=== PATIENT | male | born 1965 | race Caucasian/White ===

== ENCOUNTER 2018-07-27 06:05 | Day surgery (SDC) | payer OTHER ==
[~2018-07-27] VITALS: Ht 175.3 cm; Wt 86.2 kg
[~2018-07-27 06:05] MED LIST: HYDROCODONE-APA1 TAB PO; MORPHINE SULFAT30 M4 PO; NORVASC10 MG PO; PERCOCET 10/3251 TA1 PO; PRILOSEC20 MG PO; TORADOL10 MG PO
[2018-07-27 06:43] LABS: HEMATOCRIT 42.1 % (42.0-54.0); HEMOGLOBIN 14.2 g/dL (13.5-17.5); MCH 31.1 pg (26.0-34.0); MCHC 33.7 g/dL (31.0-37.0); MCV 92.1 fL (80.0-100.0); MEAN PLATELET VOLUME 9.6 fL (7.4-10.4); RBC 4.57 10x6/uL (4.20-6.10); RDW 13.4 % (11.5-14.5); WBC 8.9 10x3/uL (4.8-10.8)
[2018-07-27 07:58] VITALS: BP 126/89; Ht 175.3 cm; Wt 86.2 kg
[2018-07-27] MEDS ORDERED: OXYCODONE HCL5 M1 PO (11:01)
--- NOTE | 2018-07-27 13:25 | NUR ---
IV REMOVED PRESSURE HELD
--- NOTE | 2018-07-27 13:41 | OP ---
PATIENT NAME: CHRIS BRAND MEDICAL RECORD: [id number] :69 LOCATION:[facility] ADMISSION DATE: SURGEON: JOHN ACOSTA DO DATE OF OPERATION: 07/27/2018 PROCEDURE PERFORMED: Left knee arthroscopy with partial medial meniscectomy. PREOPERATIVE DIAGNOSIS: Left knee medial meniscal tear. POSTOPERATIVE DIAGNOSIS: Left knee medial meniscal tear. INDICATIONS: Mr. Brand is a 53-year-old male who presented to my office with an MRI, which showed a medial meniscal tear. He had popping, catching, and locking symptoms for quite some time. He was tired of dealing with it and wanted something done. He was informed of the risks including infection, bleeding, damage to nerves and vessels, need for further surgery, and he was okay with those risks and signed the consent. SURGEON: John Acosta DO DESCRIPTION OF PROCEDURE: The patient was taken to the operative suite, laid in supine position, given general anesthetic. LMA was placed. Given 2 grams Ancef preoperatively. The left lower extremity was prepped and draped in sterile fashion. A timeout was performed, everyone was in agreement with the correct side, site, patient and procedure. The procedure then began with injecting the medial and lateral anterior portal sites with 0.25% Marcaine, approximately 3 mL in each site. Then, the 11 blade scalpel was used to establish the lateral portal. Trocar was entered in the knee and the camera was then entered in the knee. The suprapatellar pouch was inspected and no loose body was seen, same as the lateral and medial gutters. Knee was then flexed down and the medial compartment was entered. The 18-gauge spinal needle was then used to establish a medial portal. This was then removed. An 11-blade scalpel was used to open it up. Trocar was then entered and then a probe. I probed the medial meniscus. It was quite a large tear from the middle to the posterior horn. This was then bit and trimmed out with a biter and shaver. Once we trimmed back to a stable position, it was checked with a probe and seen to be stable. The ACL was then checked and seen to be in good position. The probe was then parked in the posterior knee, lateral knee through the notch and then the leg was [id number]. The lateral meniscus was probed and it was seen to be in good position as well and no tear seen in it. A probe was then removed and cartilage was in good shape on the lateral femoral condyle. 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 The knee was then flexed partially down and the patella tracked very well in the trochlea. The water was then turned off. Suction was turned on. Excess fluid was removed from the knee. Two incisions were closed with 4-0 Monocryl with an inverted interrupted fashion. Then, Adaptic, 4 x 4s, and Tegaderm were then placed on the knee. An ABD was then placed over that and Webril and 6" ROSMERY and YUAN hose stocking was placed up to the knee. He was awakened and taken to recovery in stable condition. BLOOD LOSS: Minimal. COMPLICATIONS: None. TRANSINT:[id number] Voice Confirmation ID: [id number] DOCUMENT ID: [id number] OPERATIVE REPORT [id number] CHRIS BRAND MICHAEL D, DO at 1341 CC: [id number] DICTATION DATE: 07/27/18 1105 EMERGENCY DEPT TECH: 07/27/18 1148 DEP [facility] [place]/27/18 [facility] [address] [place] [address]
== END 2018-07-27 13:35 | disposition home or self-care (01) ==
LOC: D.OPS 06:05
PROVIDERS: Anesthesiology; ATTEND Orthopaedic Surgery
DX: S83.232A Complex tear of medial meniscus, current injury, left knee, initial encounter (principal); Z01.812 Encounter for preprocedural laboratory examination

== ENCOUNTER → 2018-11-24 13:07 | Outpatient (CLI) | payer MEDICAID ==
[2018-07-27 07:58] VITALS: BMI 28.1
[~2018-11-24 13:07] MED LIST changes: +ASPIRIN325 MG PO; +KEFLEX500 MG PO; +OXYCODONE HCL10 MG PO; +OXYCODONE HCL5 M1 PO; +VISTARIL50 MG PO
== END | disposition home or self-care (01) ==
LOC: D.MRI 13:07
PROVIDERS: ATTEND Orthopaedic Surgery
DX: M23.222 Derangement of posterior horn of medial meniscus due to old tear or injury, left knee (principal)

== ENCOUNTER → 2018-12-01 15:01 | Outpatient (CLI) | payer MEDICAID ==
[2018-07-27 07:58] VITALS: BMI 28.1
== END | disposition home or self-care (01) ==
LOC: D.LABREF 15:01
PROVIDERS: ATTEND Orthopaedic Surgery
DX: M17.12 Unilateral primary osteoarthritis, left knee (principal)

== ENCOUNTER 2018-12-06 09:02 | Inpatient (IN) | payer MEDICAID ==
[~2018-12-06] VITALS: Ht 172.7 cm; Wt 90.9 kg
[~2018-12-06 09:02] MED LIST changes: -ASPIRIN325 MG PO; -KEFLEX500 MG PO; -OXYCODONE HCL10 MG PO; -VISTARIL50 MG PO
[2018-12-08 09:47] LABS: BASOPHILS 0.3 % (0-2); EOSINOPHILS 2.4 % (0-7); HEMATOCRIT 42.5 % (42.0-54.0); HEMOGLOBIN 14.3 g/dL (13.5-17.5); IMMATURE GRANULOCYTES 0.1 % (0-5); LYMPHOCYTES 36.3 % (15-50); MCH 30.6 pg (26.0-34.0); MCHC 33.6 g/dL (31.0-37.0); MEAN PLATELET VOLUME 9.9 fL (7.4-10.4); MONOCYTES 6.2 % (2-11); NEUTROPHILS 54.7 % (40-80); PLATELET COUNT 220 10x3/uL (130-400); RBC 4.67 10x6/uL (4.20-6.10); RDW 13.3 % (11.5-14.5); WBC 6.7 10x3/uL (4.8-10.8)
[2018-12-08 09:58] LABS: CALC OSMOLALITY 283 mosm/kg (275-300); CALCIUM 8.4 mg/dL (8.5-10.1); CARBON DIOXIDE 31.3 mmol/L (21.0-32.0); CHLORIDE - SERUM 106 mmol/L (98-107); CREATININE - SERUM 0.9 mg/dL (0.6-1.3); GLUCOSE 91 mg/dL (74-106); POTASSIUM - SERUM 3.4 mmol/L (3.5-5.1); SODIUM 144 mmol/L (136-145); UREA NITROGEN 5 mg/dL (7-18); eGFR NON AFRICAN AMERICAN > 90 mL/min (90-120)
[2018-12-08 10:11] LABS: APTT 29.8 SECONDS (22.8-39.4); INR 1.05 (0.85-1.17); PROTIME 13.2 SECONDS (11.6-15.0)
[2018-12-08 12:58] LABS: APPEARANCE CLEAR (CLEAR); BILIRUBIN NEGATIVE (NEGATIVE); COLOR YELLOW (YELLOW); GLUCOSE 50 mg/dL (NEGATIVE); KETONE NEGATIVE (NEGATIVE); NITRITE NEGATIVE (NEGATIVE); PROTEIN NEGATIVE (NEGATIVE); UROBILINOGEN NORMAL (NORMAL)
[2018-12-14] VITALS (14 sets, daily range): BP systolic 112–146; BP diastolic 69–92; Ht 172.7 cm; Wt 90.9 kg
--- NOTE | 2018-12-14 11:01 | NUR ---
MEETS ANESTHESIA DISCHARGE CRITERIA
--- NOTE | 2018-12-14 11:57 | NUR ---
PATIENT REQUESTING COKE. DIET ORDER PUT IN. CALLING DIETARY NOW. CALLED "" DAM[facility]. . IS THE EX IN [place] SAYS HE KNOWS THIS. I WILL REFRESH HIS MEMORY. CL IN REACH. NO FURTHER NEEDS AT THIS TIME.
--- NOTE | 2018-12-14 12:02 | OP ---
PATIENT NAME: CHRIS BARND MEDICAL RECORD: [id number] :69 LOCATION:[id number] ADMISSION DATE:12/14/18 SURGEON: JOHN ACOSTA DO DATE OF OPERATION: 12/14/2018 PROCEDURE PERFORMED: Left total knee arthroplasty. PREOPERATIVE DIAGNOSIS: Left knee osteoarthritis. POSTOPERATIVE DIAGNOSIS: Left knee osteoarthritis. INDICATIONS: Mr. Brand is a 53-year-old male who underwent left knee scope. 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 The meniscus was trimmed out as best as could. He had continued pain and swelling and he was tired of dealing with it. I told him we could do total knee, I did not want to because of his young age, but he said he cannot stand the pain anymore. I tried bracing and did not work as well as injections and to no avail. He is aware of the risks including infection, bleeding, damage to nerves and vessels, need for further surgery, fracture, failure of the implant, blood clots and even and he signed the consent. SURGEON: John Acosta DO DESCRIPTION OF PROCEDURE: The patient was given a block by anesthesia in the preoperative area. He was taken to the operative suite, laid in supine position, given 2 grams of Ancef and 80 mg of gentamicin and a gram of TXA preoperatively. The left lower extremity was then prepped and draped in sterile fashion after he was sedated and LMA was placed. Time-out was performed. Everyone was in agreeance with the correct side, site, patient and procedure. The incision was then marked out over the anterior knee and covered in Ioban. Then, an incision was made down to the capsule. Bleeding was coagulated with Aquamantys and the medial parapatellar approach was used to enter the knee joint. The fat pad was partially removed and the patella was milled down for the prosthesis. The femur was then flexed up and the femoral canal was entered. Distal femur was then cut and the proximal tibia as well. Excess bone was removed. Knee was brought to extension. Lamina ship design teacher was used with [employer] to remove the menisci with the Bovie and any bleeding coagulated with the Aquamantys. Once that was completed, I tried to fit the extension block and did not quite fit, it was tight medially. The tibia was then recut. Once the tibias were cut, the extension block fit well and the MCL had been released. The knee was then flexed up and the femur sized to be 675. The 4-in-1 cutting block was then used to cut after being checked to make sure there was no notching with Toni wing. Once that was cut, the bone was removed, the trial was put on and the tibial component was floated in and ranged and rotation was marked. The lug holes in the femur were drilled as well as on the holes for the prosthesis on the patella. The trials were removed. The tibia was then exposed and sized to be 75. This was drilled and punched. Extra holes put in the tibia and then the cement was mixed and it was put in the tibia and on the implant, impacted in place. Excess cement was removed. The femur was impacted on and the 10 poly was put in between them and brought to extension and then the patella was put on after it was irrigated and curetted out. The cement was put in the holes and on the patella implant and then squeezed into place. The excess cement was removed off any that was on the tibia and a liter of normal saline and a liter of Bactisure and 2 liters normal saline then used to irrigate OPERATIVE REPORT [id number] CHRIS BRAND the knee. We then ranged in size and the 10th very well. We used a 10 E poly cruciate retaining standard. This was placed in and after good range of motion, very stable with varus valgus stress. In the knee we placed a Surgicel powder as well as vancomycin and tobramycin powder and then #2 Ethibond was used to close the capsule in pidego-bh-gphuv fashion. The skin was then closed with 2-0 Vicryl in an inverted interrupted fashion. ZipLine was placed on the knee. Adaptic, 4 x 4s, ABD, Webril, Kwabena wrap were then placed on the knee, YUAN hose stocking up to the knee. The patient was then awakened and taken to recovery in stable condition. Blood loss was approximately 200 mL. COMPLICATIONS: None. TRANSINT:[id number] Voice Confirmation ID: [id number] DOCUMENT ID: [id number] JOHN ACOSTA DO at 1202 CC: EASTON PADRON [id number] DICTATION DATE: 12/14/18 1002 WELDER FITTER HELPER: 12/14/18 1042 ADM IN [facility] [address] [id number]
--- NOTE | 2018-12-14 12:21 | NUR ---
FAMILY IN ROOM. AVELINA BURGESS PROVIDED. NO FURTHER NEEDS AT THIS TIME. TM
--- NOTE | 2018-12-14 15:26 | NUR ---
ICE PACK PROVIDED. VANILLA PUDDING RECEIVED. CL IN REACH. [facility]
--- NOTE | 2018-12-14 21:00 | NUR ---
A/O WITH NO SIGNS OF DISTRESS. YUAN HOSE AND ROSMERY WRAP TO THE LT KNEE, CDI, AND PULSE PALP TO FOOT. IV TO THE RT HAND WITH NO REDNESS OR SWELLING NOTED. NC @2L. CALLED ADRIANA SAEED FOR SLEEPING MED PER PT REQUEST. DENIES NO OTHER NEEDS AT THIS TIME. CONTINUE PLAN OF CARE.
[2018-12-15] VITALS: BP 112/62
[2018-12-15 04:00] VITALS: BP 107/61
[2018-12-15 06:18] LABS: BASOPHILS 0.1 % (0-2); EOSINOPHILS 0 % (0-7); HEMATOCRIT 39.8 % (42.0-54.0); HEMOGLOBIN 13.3 g/dL (13.5-17.5); IMMATURE GRANULOCYTES 0.2 % (0-5); LYMPHOCYTES 12.4 % (15-50); MCH 30.6 pg (26.0-34.0); MCHC 33.4 g/dL (31.0-37.0); MCV 91.5 fL (80.0-100.0); MEAN PLATELET VOLUME 10.3 fL (7.4-10.4); MONOCYTES 4.4 % (2-11); NEUTROPHILS 82.9 % (40-80); PLATELET COUNT 218 10x3/uL (130-400); RBC 4.35 10x6/uL (4.20-6.10); WBC 14.6 10x3/uL (4.8-10.8)
[2018-12-15 06:46] LABS: CALC OSMOLALITY 279 mosm/kg (275-300); CALCIUM 8.3 mg/dL (8.5-10.1); CARBON DIOXIDE 27.8 mmol/L (21.0-32.0); CHLORIDE - SERUM 103 mmol/L (98-107); CREATININE - SERUM 0.9 mg/dL (0.6-1.3); GLUCOSE 181 mg/dL (74-106); POTASSIUM - SERUM 3.4 mmol/L (3.5-5.1); SODIUM 138 mmol/L (136-145); UREA NITROGEN 10 mg/dL (7-18); eGFR NON AFRICAN AMERICAN > 90 mL/min (90-120)
[2018-12-15 08:30] VITALS: BP 108/64
--- NOTE | 2018-12-15 08:46 | NUR ---
PATIENT ON CPM. NO NEEDS AT THIS TIME. CL IN REACH. WCTM
[2018-12-15 11:06] LABS: APPEARANCE CLEAR (CLEAR); BILIRUBIN NEGATIVE (NEGATIVE); COLOR YELLOW (YELLOW); GLUCOSE 250 mg/dL (NEGATIVE); KETONE NEGATIVE (NEGATIVE); NITRITE NEGATIVE (NEGATIVE); PROTEIN TRACE mg/dL (NEGATIVE); SPECIFIC GRAVITY 1.015 (1.005-1.020); UROBILINOGEN NORMAL (NORMAL)
[2018-12-15 11:07] LABS: BACTERIA FEW /hpf (NEGATIVE); EPITHELIAL CELL CAST RARE /lpf (NONE SEEN); EPITHELIAL CELLS OCC /hpf (0-5); GRANULAR CAST RARE /lpf (NONE SEEN); MUCUS <1+ /lpf (NONE SEEN); RED CELLS - URINE OCC /hpf (0-5); WHITE CELLS - URINE RARE /hpf (NEGATIVE)
[2018-12-15 11:08] LABS: AMORPHOUS SEDIMENT <1+ /lpf (NONE SEEN)
[2018-12-15] MEDS ORDERED: VISTARIL50 MG PO (11:41)
[2018-12-15] MEDS ORDERED: OXYCODONE HCL10 MG PO (11:41)
[2018-12-15] MEDS ORDERED: ASPIRIN325 MG PO (11:41)
[2018-12-15] MEDS ORDERED: KEFLEX500 MG PO (11:42)
[2018-12-15 12:43] VITALS: BP 113/82
--- NOTE | 2018-12-15 14:52 | MORECARE ---
CASE MANAGEMENT DISCHARGE SUMMARY PATIENT: CHRIS BRAND UNIT: [id number] ADM DATE: 12/14/18 AGE: 53 : 69 SEX: M ROOM/BED: D.2210 AUTHOR: GREGORY MOREIRA PHYSICIAN: REFERRING PHYSICIAN: HARRIET ACOSTA DO DATE OF SERVICE: 12/15/18 Discharge Plan Patient Name: CHRIS BRAND Facility: [facility]:[place] : 1965 Planned Disposition: Home or Self Care Anticipated Discharge Date: Discharge Date: Expected LOS: Initial Reviewer: [email or web address] Initial Review Date: 12/14/2018 Generated: 12/15/18 3:52 pm Comments DCP- Discharge Planning Updated by [email or web address]: Christi Lomas on 12/15/18 1:[address] Patient Name: CHRIS BRAND Admission Status: Elective Accout number: [id number] Admission Date: 12-14-2018 : 1965 Admission Diagnosis: Attending: HARRIET ACOSTA Current LOS: 1 Anticipated DC Date: Planned Disposition: Home or Self Care Primary Insurance: MEDICAID [place] Discharge Planning Comments: CM met with patient to complete initial dc planning assessment. CM educated patient on the CM role and verbal consent given by patient to complete assessment. Patient lives at home where he is independent with his care. At discharge patient plans to return home with family and feels this is a safe discharge. His step mother will be his haul truck driver home. CM discussed availability of home health, rehab services, and medical equipment. He stated that he has a CPM and an ICE machine, but did not get a walker or a BSC. I called Rod with [employer] to see if he has an order for a walker and BSC and he will call me back. He stated that his daughter is a PT locally and she can do it at his home. I have a call into Dr Acosta to see if that will be OK. I will await for an answer. Patient plans to DC today. Patient denied known discharge needs at this time. CM will continue to follow and will assist as needed with dc plans/needs. Hvac Service Manager: Christi Lomas DCPIA - Discharge Planning Initial Assessment Updated by [email or web address]: Christi Lomas on 12/15/18 2:44 pm * Is the patient Alert and Oriented? Yes * How many steps to enter\exit or inside your home? 04/02 * PCP NERE[facility] * [facility] * Preadmission Environment Home with Family * ADLs Independent * List name and contact numbers for known caregivers / representatives who currently or will assist patient after discharge: CPM & ICE MACHINE * Verbal permission to speak to the caregivers and representatives has been obtained from the patient. N/A * Community resources currently utilized None * Additional services required to return to the preadmission environment? Yes * Can the patient safely return to the preadmission environment? Yes * Has this patient been hospitalized within the prior 30 days at any hospital? No Patient Name: CHRIS BRAND Page [phone] at 1452 All edits/amendments must be made on the electronic document DICTATION DATE: 12/15/181450 SOFTWARE DEVELOPMENT TEST ENGINEER: KENNETH 12/15/181450 RPT#: [id number] DC DATE: STATUS: ADM IN [facility] [address] [place] [address] END OF REPORT
--- NOTE | 2018-12-15 15:02 | MORECARE ---
CASE MANAGEMENT DISCHARGE SUMMARY PATIENT: CHRIS BRAND UNIT: [id number] ADM DATE: 12/14/18 AGE: 53 : 69 SEX: M ROOM/BED: D.2210 AUTHOR: GREGORY MOREIRA PHYSICIAN: REFERRING PHYSICIAN: HARRIET ACOSTA DO DATE OF SERVICE: 12/15/18 Discharge Plan Patient Name: CHRIS BRAND Facility: [facility]:[place] : 1965 Planned Disposition: Home or Self Care Anticipated Discharge Date: Discharge Date: Expected LOS: Initial Reviewer: [email or web address] Initial Review Date: 12/14/2018 Generated: 12/15/18 4:01 pm Comments DCP- Discharge Planning Updated by [email or web address]: Christi Lomas on 12/15/18 1:[address] ACOSTA STATED IT WAS FINE FOR HIS DAUGHTER TO DO PT. I HAVE GIVEN HIM AN ORDER FOR PT , I AM ALSO ORDERING A WALKER AND BEDSIDE COMMODE TO [facility] FOR THE PATIENT DCP- Discharge Planning Updated by [email or web address]: Christi Lomas on 12/15/18 1:[address] Patient Name: CHRIS BRAND Admission Status: Elective Accout number: [id number] Admission Date: 12-14-2018 : 1965 Admission Diagnosis: Attending: HARRIET ACOSTA Current LOS: 1 Anticipated DC Date: Planned Disposition: Home or Self Care Primary Insurance: MEDICAID [place] Discharge Planning Comments: CM met with patient to complete initial dc planning assessment. CM educated patient on the CM role and verbal consent given by patient to complete assessment. Patient lives at home where he is independent with his care. At discharge patient plans to return home with family and feels this is a safe discharge. His step mother will be his local company flatbed truck driver home. WENDI discussed availability of home health, rehab services, and medical equipment. He stated that he has a CPM and an ICE machine, but did not get a walker or a BSC. I called Rod with [employer] to see if he has an order for a walker and BSC and he will call me back. He stated that his daughter is a PT locally and she can do it at his home. I have a call into Dr Acosta to see if that will be OK. I will await for an answer. Patient plans to DC today. Patient denied known discharge needs at this time. CM will continue to follow and will assist as needed with dc plans/needs. Clinical Nurse Occupational Medicine: Christi Lomas DCPIA - Discharge Planning Initial Assessment Updated by [email or web address]: Christi Lomas on 12/15/18 2:44 pm * Is the patient Alert and Oriented? Yes * How many steps to enter\exit or inside your home? 04/02 * PCP PAD[facility] * [facility] * Preadmission Environment Home with Family * ADLs Independent * List name and contact numbers for known caregivers / representatives who currently or will assist patient after discharge: CPM & ICE MACHINE * Verbal permission to speak to the caregivers and representatives has been obtained from the patient. N/A * Community resources currently utilized None * Additional services required to return to the preadmission environment? Yes * Can the patient safely return to the preadmission environment? Yes * Has this patient been hospitalized within the prior 30 days at any hospital? No External Providers [facility] Next Contact Date: Service Request Date: Service Type: Resolution: Reviewer: Comments: Last DP export: 12/15/18 1:52 Patient Name: CHRIS BRAND Page [phone] at 1502 All edits/amendments must be made on the electronic document DICTATION DATE: 12/15/181500 THIRD RIGGER: KENNETH 12/15/181500 RPT#: [id number] DC DATE: STATUS: ADM IN [facility] [address] [place] [address] END OF REPORT
--- NOTE | 2018-12-15 15:11 | MORECARE ---
CASE MANAGEMENT DISCHARGE SUMMARY PATIENT: CHRIS BRAND UNIT: [id number] ADM DATE: 12/14/18 AGE: 53 : 69 SEX: M ROOM/BED: D.2210 AUTHOR: GREGORY MOREIRA PHYSICIAN: REFERRING PHYSICIAN: HARRIET ACOSTA DO DATE OF SERVICE: 12/15/18 Discharge Plan Patient Name: CHRIS BRAND Facility: [facility]:[place] : 1965 Planned Disposition: Home or Self Care Anticipated Discharge Date: Discharge Date: Expected LOS: Initial Reviewer: [email or web address] Initial Review Date: 12/14/2018 Generated: 12/15/18 4:11 pm Comments DCP- Discharge Planning Updated by [id number]: Christi Lomas on 12/15/18 2:[address] [facility]I WILL DELIVER WALKER AND BSC TO HOSPITAL DCP- Discharge Planning Updated by [email or web address]: Christi Lomas on 12/15/18 1:[address] ACOSTA STATED IT WAS FINE FOR HIS DAUGHTER TO DO PT. I HAVE GIVEN HIM AN ORDER FOR PT , I AM ALSO ORDERING A WALKER AND BEDSIDE COMMODE TO [facility] FOR THE PATIENT DCP- Discharge Planning Updated by [email or web address]: Christi Lomas on 12/15/18 1:[address] Patient Name: CHRIS BRAND Admission Status: Elective Accout number: [id number] Admission Date: 12-14-2018 : 1965 Admission Diagnosis: Attending: HARRIET ACOSTA Current LOS: 1 Anticipated DC Date: Planned Disposition: Home or Self Care Primary Insurance: MEDICAID [place] Discharge Planning Comments: CM met with patient to complete initial dc planning assessment. CM educated patient on the CM role and verbal consent given by patient to complete assessment. Patient lives at home where he is independent with his care. At discharge patient plans to return home with family and feels this is a safe discharge. His step mother will be his shag truck driver home. CM discussed availability of home health, rehab services, and medical equipment. He stated that he has a CPM and an ICE machine, but did not get a walker or a BSC. I called Rod with [employer] to see if he has an order for a walker and BSC and he will call me back. He stated that his daughter is a PT locally and she can do it at his home. I have a call into Dr Acosta to see if that will be OK. I will await for an answer. Patient plans to DC today. Patient denied known discharge needs at this time. CM will continue to follow and will assist as needed with dc plans/needs. Transformation Lead: Christi Lomas DCPIA - Discharge Planning Initial Assessment Updated by [email or web address]: Christi Lomas on 12/15/18 2:44 pm * Is the patient Alert and Oriented? Yes * How many steps to enter\exit or inside your home? 04/02 * PCP P[facility] * [facility] * Preadmission Environment Home with Family * ADLs Independent * List name and contact numbers for known caregivers / representatives who currently or will assist patient after discharge: CPM & ICE MACHINE * Verbal permission to speak to the caregivers and representatives has been obtained from the patient. N/A * Community resources currently utilized None * Additional services required to return to the preadmission environment? Yes * Can the patient safely return to the preadmission environment? Yes * Has this patient been hospitalized within the prior 30 days at any hospital? No Coverage Notice Reviewer: [id number] - Christi Lomas Notice Issued Date-Time: 12/15/2018 15:03 Notice Type: Patient Choice Letter Notice Delivered To: Patient Relationship to Patient: Agricultural Adviser Name: Delivery Method: HAND - Hand Delivered Sylvia Days: Prior Verbal Notification: Recipient Understood Notice: Yes Recipient Signature: Yes Med Rec Note Co-signed by Attending: Coverage Notice Comment: Last DP export: 12/15/18 2:01 Patient Name: CHRIS BRAND Page [phone] at 1511 All edits/amendments must be made on the electronic document DICTATION DATE: 12/15/181510 APARTMENT MAINTENANCE WORKER: KENNETH 12/15/181510 RPT#: [id number] DC DATE: STATUS: ADM IN [facility] [address] [place] [address] END OF REPORT
--- NOTE | 2018-12-15 16:28 | NUR ---
PATIENT DISCHARGE INSTRUCTIONS GIVEN. PATIENT VOICED UNDERSTANDING. IV THERAPY REMOVED FROM RIGHT HAND TIP INTACT. WHEELED OUT BY JOSE G PALMA RN AND MYSELF.
--- NOTE | 2018-12-16 09:32 | MORECARE ---
CASE MANAGEMENT DISCHARGE SUMMARY PATIENT: CHRIS BRAND UNIT: [id number] ADM DATE: 12/14/18 AGE: 53 : 69 SEX: M ROOM/BED: D.2210 AUTHOR: GREGORY MOREIRA PHYSICIAN: REFERRING PHYSICIAN: HARRIET ACOSTA DO DATE OF SERVICE: 12/16/18 Discharge Plan Patient Name: CHRIS BRAND Facility: [facility]:[place] : 1965 Planned Disposition: Home or Self Care Anticipated Discharge Date: Discharge Date: 12/15/2018 Expected LOS: 0 Initial Reviewer: [email or web address] Initial Review Date: 12/14/2018 Generated: 12/16/18 10:32 am Comments DCP- Discharge Planning Updated by [email or web address]: Christi Lomas on 12/15/18 2:[address] YI WILL DELIVER WALKER AND BSC TO HOSPITAL DCP- Discharge Planning Updated by [email or web address]: Christi Lomas on 12/15/18 1:[address] ACOSTA STATED IT WAS FINE FOR HIS DAUGHTER TO DO PT. I HAVE GIVEN HIM AN ORDER FOR PT , I AM ALSO ORDERING A WALKER AND BEDSIDE COMMODE TO [facility] FOR THE PATIENT DCP- Discharge Planning Updated by [email or web address]: Christi Lomas on 12/15/18 1:[address] Patient Name: CHRIS BRAND Admission Status: Elective Accout number: [id number] Admission Date: 12-14-2018 : 1965 Admission Diagnosis: Attending: HARRIET ACOSTA Current LOS: 1 Anticipated DC Date: Planned Disposition: Home or Self Care Primary Insurance: MEDICAID [place] Discharge Planning Comments: CM met with patient to complete initial dc planning assessment. CM educated patient on the CM role and verbal consent given by patient to complete assessment. Patient lives at home where he is independent with his care. At discharge patient plans to return home with family and feels this is a safe discharge. His step mother will be his driver sales home. CM discussed availability of home health, rehab services, and medical equipment. He stated that he has a CPM and an ICE machine, but did not get a walker or a BSC. I called Rod with [employer] to see if he has an order for a walker and BSC and he will call me back. He stated that his daughter is a PT locally and she can do it at his home. I have a call into Dr Acosta to see if that will be OK. I will await for an answer. Patient plans to DC today. Patient denied known discharge needs at this time. CM will continue to follow and will assist as needed with dc plans/needs. Rubber Tester: Christi Lomas DCPIA - Discharge Planning Initial Assessment Updated by [email or web address]: Christi Lomas on 12/15/18 2:44 pm * Is the patient Alert and Oriented? Yes * How many steps to enter\exit or inside your home? 04/02 * PCP [facility] * Pharm[facility] * Preadmission Environment Home with Family * ADLs Independent * List name and contact numbers for known caregivers / representatives who currently or will assist patient after discharge: CPM & ICE MACHINE * Verbal permission to speak to the caregivers and representatives has been obtained from the patient. N/A * Community resources currently utilized None * Additional services required to return to the preadmission environment? Yes * Can the patient safely return to the preadmission environment? Yes * Has this patient been hospitalized within the prior 30 days at any hospital? No Coverage Notice Reviewer: [email or web address] - Christi Lomas Notice Issued Date-Time: 12/15/2018 15:03 Notice Type: Patient Choice Letter Notice Delivered To: Patient Relationship to Patient: Pot Maker Name: Delivery Method: HAND - Hand Delivered Sylvia Days: Prior Verbal Notification: Recipient Understood Notice: Yes Recipient Signature: Yes Med Rec Note Co-signed by Attending: Coverage Notice Comment: Last DP export: 12/15/18 2:11 Patient Name: CHRIS BRAND Page [phone] at 0932 All edits/amendments must be made on the electronic document DICTATION DATE: 12/16/18931 SCIENTIFIC ADVISOR: KENNETH 12/16/18931 RPT#: [id number] DC DATE:12/15/18 STATUS: DIS IN [facility] [address] [place] [address] END OF REPORT
== END 2018-12-15 16:33 | disposition home or self-care (01) | DRG 470 ==
LOC: D.SDCHOLD 12-08 10:00 → D.MS 12-14 10:59 → D.SDCHOLD 12-14 13:10 → D.MS 12-15 16:33
PROVIDERS: Internal Medicine Nephrology; ADMIT Orthopaedic Surgery; ATTEND Orthopaedic Surgery
PROC: 0SRD0J9 Replacement of Left Knee Joint with Synthetic Substitute, Cemented, Open Approach (ICD-10-PCS; principal; 2018-12-14 08:15)
DX: M17.12 Unilateral primary osteoarthritis, left knee (principal); E87.6 Hypokalemia; G25.81 Restless legs syndrome; I10 Essential (primary) hypertension